=== PATIENT | male | born 1975 | race American Indian/Alaskan Native ===

== ENCOUNTER 2018-07-04 09:36 | Inpatient (IN) | payer SELFPAY ==
[2018-07-04 09:44] VITALS: BMI 23.7
[2018-07-04 10:59] LABS: BASO # 0.1 K/uL (0.0-0.2); BASO % 0.4 % (0.0-2.0); LYMPH # 0.7 K/uL (1.0-4.3); LYMPH % 4.6 % (20.0-40.0); MEAN CELL VOLUME 85.9 fl (80.0-94.0); MEAN CORPUSCULAR HGB CONC 32.6 g/dL (33.0-37.0); MEAN PLATELET VOLUME 7.8 fl (7.2-11.7); MONO # 0.7 K/uL (0.0-0.8); MONO % 4.8 % (0.0-10.0); NEUT # 13.3 K/uL (1.8-7.0); NEUT % 90.2 % (50.0-75.0); PLATELET COUNT 480 K/uL (130-400); RBC 4.65 Mil/uL (4.40-5.90); RED CELL DISTRIBUTION WIDTH 14.8 % (11.5-14.5); WHITE BLOOD COUNT 14.8 K/uL (4.8-10.8)
[2018-07-04 11:14] LABS: ALB/GLOB RATIO 1.1 (1.0-2.1); ALBUMIN 4.2 g/dL (3.5-5.0); ALT/SGPT 33 U/L (21-72); AST/SGOT 38 U/L (17-59); BLOOD UREA NITROGEN 18 mg/dl (9-20); CALCIUM 9.6 mg/dL (8.4-10.2); GFR NON-AFRICAN AMERICAN > 60
[2018-07-04 11:15] LABS: SPERM URINE RARE /hpf; URINE BILIRUBIN NEGATIVE (NEGATIVE); URINE BLOOD NEGATIVE (NEGATIVE); URINE CLARITY CLEAR (Clear); URINE COLOR YELLOW (YELLOW); URINE GLUCOSE (UA) NEG (NEGATIVE); URINE LEUKOCYTE ESTERASE NEG Leu/uL (Negative); URINE PROTEIN 30 mg/dL (NEGATIVE); URINE UROBILINOGEN 0.2-1.0 mg/dL (0.2-1.0)
[2018-07-04 11:24] LABS: BARBITURATES, UR NEGATIVE (NEGATIVE)
[2018-07-04 11:28] LABS: BENZODIAZEPINES, UR NEGATIVE (NEGATIVE); OPIATES, UR POSITIVE (NEGATIVE); PHENCYCLIDINE, UR NEGATIVE (NEGATIVE)
[2018-07-04 11:40] LABS: LYMPHOCYTE 6 % (20-50); MONOCYTE 5 % (0-10); NEUTROPHIL 89 % (42-75); TOTAL CELLS COUNTED 100
[2018-07-04 11:41] LABS: ANISOCYTOSIS SLIGHT; PLATELET CLUMPS PRESENT; PLATELET ESTIMATE NORMAL (NORMAL)
--- NOTE | 2018-07-04 12:57 | RAD ---
Date of service: 07/04/2018 HISTORY: SOB COMPARISON: No prior. FINDINGS: LUNGS: No active pulmonary disease. PLEURA: No significant pleural effusion identified, no pneumothorax apparent. CARDIOVASCULAR: No atherosclerotic calcification present Normal. OSSEOUS STRUCTURES: No significant abnormalities. VISUALIZED UPPER ABDOMEN: Normal. OTHER FINDINGS: None. IMPRESSION: No active disease.
--- NOTE | 2018-07-04 14:29 | ED PDOC ---
HPI: Psych/Substance Abuse Time Seen by Provider: 07/04/18 10:09 Chief Complaint (Nursing): Substance Abuse Chief Complaint (Provider): Substance Abuse History Per: Patient Onset/Duration Of Symptoms: Days Current Symptoms Are (Timing): Still Present Additional Complaint(s): 43 y/o male with a PMHx of depression and substance abuse presents to the ED complaining of recently binging on cocaine and sleeping pills stating "It's all over" with suicidal thoughts and the need to escape. Patient admits to occasional alcohol use and prior hospitalizations. Patient reports he is not taking medications as prescribed. Of note, patient will not elaborate on stressors or triggers for recent worsening symptoms. Patient denies physical complaints except for palpitations. Otherwise, patient additionally denies history of opioid abuse. Past Medical History Reviewed: Historical Data, Nursing Documentation, Vital Signs Vital Signs: Last Vital Signs Temp 99.1 F 07/04/18 09:45 Pulse 112 H 07/04/18 09:45 Resp 18 07/04/18 09:45 BP 144/106 H 07/04/18 09:45 Pulse Ox 99 07/04/18 09:45 - Medical History PMH: Depression Other PMH: substance abuse - Surgical History Surgical History: No Surg Hx - Family History Family History: States: Unknown Family Hx - Social History Alcohol: Occasional Drugs: Cocaine - Immunization History Hx Tetanus Toxoid Vaccination: No Hx Influenza Vaccination: No Hx Pneumococcal Vaccination: No - Home Medications Home Medications: Ambulatory Orders Medication Instructions Recorded No Known Home Med 07/04/18 - Allergies Allergies/Adverse Reactions: Allergies Allergy/AdvReac Type Severity Reaction Status Date / Time No Known Allergies Allergy Verified 07/04/18 10:35 Review of Systems ROS Statement: Except As Marked, All Systems Reviewed And Found Negative Cardiovascular: Positive for: Palpitations Psych: Positive for: Depression, Suicidal ideation Physical Exam - Reviewed Nursing Documentation Reviewed: Yes Vital Signs Reviewed: Yes - Physical Exam Appears: Positive for: No Acute Distress Head Exam: Positive for: ATRAUMATIC, NORMOCEPHALIC Skin: Positive for: Normal Color, Warm, Dry Eye Exam: Positive for: Normal appearance, EOMI, PERRL Neck: Positive for: Normal, Painless ROM Cardiovascular/Chest: Positive for: Tachycardia (with regular rhythm). Negative for: Murmur Respiratory: Positive for: Normal Breath Sounds. Negative for: Respiratory Distress Gastrointestinal/Abdominal: Positive for: Normal Exam, Soft. Negative for: Tenderness Extremity: Positive for: Normal ROM. Negative for: Deformity Neurological/Psych: Positive for: Awake, Alert, Mood/Affect (Depressed Mood, Fair Insight), Other (Poor eye contact) - Laboratory Results Result Diagrams: 07/04/18 10:50 07/04/18 10:50 Lab Results: Troponin I < 0.0120 ng/mL (0.00-0.120) 07/04/18 10:50 Total Bilirubin 0.2 mg/dl (0.2-1.3) 07/04/18 10:50 AST 38 U/L (17-59) 07/04/18 10:50 ALT 33 U/L (21-72) 07/04/18 10:50 Alkaline Phosphatase 61 U/L (38-126) 07/04/18 10:50 Total Protein 8.1 G/DL (6.3-8.2) 07/04/18 10:50 Albumin 4.2 g/dL (3.5-5.0) 07/04/18 10:50 Globulin 3.9 gm/dL (2.2-3.9) 07/04/18 10:50 Albumin/Globulin Ratio 1.1 (1.0-2.1) 07/04/18 10:50 Urine Color Yellow (YELLOW) 07/04/18 10:50 Urine Clarity Clear (Clear) 07/04/18 10:50 Urine pH 6.0 (5.0-8.0) 07/04/18 10:50 Ur Specific [place] 1.023 (1.003-1.030) 07/04/18 10:50 Urine Protein 30 mg/dL (NEGATIVE) 07/04/18 10:50 Urine Glucose (UA) Neg mg/dL (NEGATIVE) 07/04/18 10:50 Urine Ketones Negative mg/dL (NEGATIVE) 07/04/18 10:50 Urine Blood Negative (NEGATIVE) 07/04/18 10:50 Urine Nitrate Negative (NEGATIVE) 07/04/18 10:50 Urine Bilirubin Negative (NEGATIVE) 07/04/18 10:50 Urine Urobilinogen 0.2-1.0 mg/dL (0.2-1.0) 07/04/18 10:50 Ur Leukocyte Esterase Neg Melissa/uL (Negative) 07/04/18 10:50 Urine Microscopic WBC 1 /hpf (0-5) 07/04/18 10:50 Urine Sperm (Auto) Rare /hpf (NONE) H 07/04/18 10:50 - ECG ECG Rhythm: Positive for: Sinus Tachycardia. Negative for: ST/T Changes Rate: 110 O2 Sat by Pulse Oximetry: 99 (RA) Pulse Ox Interpretation: Normal Medical Decision Making Medical Decision Making: Time: 1039 A/P: -- Ativan 1 mg given for Anxiety and likely cocaine intoxication. -- EKG -- Alcohol Serum -- CMP -- Urine Drug Screen -- Troponin I -- CBC with Differentials -- CXR Portable -- Ativan 1 mg IVP -- 1:1 Observation -- Urinalysis Time: 1200 -- Labs reviewed and demonstrate a mildly elevated WBC. However, no evidence of active infection noted. -- CXR demonstrates no active disease as per official radiology report. -- Urinalysis is negative Time: 1417 -- Crisis evaluation performed and recommends admission as per Dr. Trivedi. Patient is medically stable for psychiatric admission. Scribe Attestation: Documented by Presley Alcantara, acting as a scribe Jimenez Worthington DO. Provider Scribe Attestation: All medical record entries made by the Scribe were at my direction and personally dictated by me. I have reviewed the chart and agree that the record a ccurately reflects my personal performance of the history, physical exam, medical decision making, and the department course for this patient. I have also personally directed, reviewed, and agree with the discharge instructions and disposition. Disposition - Clinical Impression Clinical Impression: Depression, Substance abuse - Patient ED Disposition Is Patient to be Admitted: Yes Counseled Patient/Family Regarding: Studies Performed - Disposition Disposition Time: 14:17 Condition: STABLE Forms: [facility] ([facility]) - Pt Status Changed To: Hospital Disposition Of: Inpatient - Admit Certification Admit to Inpatient:: After my assessment, the patient will require hospitaliz ation for at least two midnights. This is because of the severity of symptoms shown, intensity of services needed, and/or the medical risk in this patient being treated as an outpatient.
--- NOTE | 2018-07-04 17:37 | CARD ---
APPROVED REPORT Date of service: 07/04/2018 EKG Measurement Heart [id number] <Conclusion> Sinus tachycardia Otherwise normal ECG
[2018-07-04 22:30] VITALS: O2SAT 100
[2018-07-04] MEDS ORDERED: DiphenhydrAMINE 50 mg/ml Inj IM PRN (23:18)
[2018-07-04] MEDS ORDERED: Magnesium Hydroxide Susp 30 ml UD PO PRN (23:18)
[2018-07-04] MEDS ORDERED: Alum-Mag Hydrox-Simethicone Susp (30 mL) PO PRN (23:18)
--- NOTE | 2018-07-04 23:49 | PCM.BM ---
<DongRuth Ilene - Last Filed: 07/04/18 23:47> Treatment Plan Problems - Problems identified on initial assessmt Hoplessness/Helplessness Date Initiated: 07/04/18 Time Initiated: 23:47 Assessment reference: NA Status: Active Altered Sleep Patterns Date Initiated: 07/04/18 Time Initiated: 23:48 Assessment reference: NA Status: Active Treatment assets and liabiliti Patient Assests: cooperative, self-reliant, ADL independent, physically healthy, negotiates basic needs Patient Liabilities: financial problems, poor support system, relationship conflicts, substance abuse - Milieu Protocol Maintain good personal hygiene: daily Encourage regular showers, every shift Remind patient to perform daily oral care Conduct patient checks and document Observation sheet: Q15 minutes Maintain personal safety: every shift Educate patient to report safety concerns to staff, every shift Monitor environment for contraband/sharps Medication safety: Monitor for expected outcome, potential side effects: every shift, Assess barriers to learning: every shift, Assess readiness for medication education: every shift <Otto Nelson - Last Filed: 07/05/18 13:55> Family Contact Family involvement: Famliy/SO not involved Family contact: Patient declines to allow family contact at present Family contact name: Pt refused. - Goals for Treatment Patient goals for treatment: Pt unable to articulate goals for treatment at this time. Pt refused rehab as he has to work and reported that he needs to leave [facility] as there are too many triggers for use. However, pt denied family or friends that he can stay with, and reported that he cannot live in a homeless custodial. Discharge/Continuing Care - Education Needs Education Needs: Patient Medication, Patient Diagnosis/Disease Process, Patient Coping Skills, Patient Community resources, Patient Aftercare Safety Plan - Discharge Discharge Criteria: Tolerates medication w/o severe side effects, Free of Suicidal thoughts, Free of paranoid thoughts, Free of agitation, Normal sleep pattern, Ability to care for self, No longer exhibiting s/s of withdrawal, Reduction of target symptoms Discharge to:: [facility] - Treatment Team Participation Patient/Family/SO Statement: 07/05/18 13:56 Pt was seen in treatment team on 07/05/18. Pt reported that he is feeling extremely depressed, but was able to contract for safety on the unit. Pt denied feeling safe if he left the unit. Pt reported he was admitted for "drinking/drugs." Pt reported he was staying with his estranged , but had to leave after a verbal altercation. Pt reported that he has lost his , children and family and has nothing left to live for. Pt reported he has a sister in [place] and uncles in [place] that he has lost contact with. Pt reported he cannot live in a custodial or [facility]. Pt refused rehab referrals or referrals to [facility]. Pt denied HI and AVT hallucinations. Pt appeared depressed and his speech was soft and slow. Pt appeared disheveled and dressed in gowns. Pt was grandiose and appeared to have unrealistic views regarding treatment. Discussed with Family/SO: No Was Patient/Family/SO present at Treatment Team Meeting: Yes <Leo Trivedi - Last Filed: 07/08/18 16:04> - Diagnosis (1) Depression Status: Acute Interventions: 07/08/18 16:04 psychotherapy, pharmacotherapy
--- NOTE | 2018-07-05 14:56 | PCM.PSYCH ---
Initial Psychiatric Evaluation - Initial Psychiatric Evaluation Type of Admission: Voluntary Legal Status: Capacity Chief Complaint (in patient's own words): I lost everything because of drugs History of Present Illness and Precipitating Events: pt is 43 ys old male with previous diagnosis of depression and polysubstance use presented to ER after suicidal attempt by overdose on cocaine and benadryl pt has not been compliant with medications or follow up, relapsed on cocaine , and opiates, resulting in loosing his and children, loosing his work, became homeless, pt became increasingly depressed feeling hopeless and helpless, on day of evaluation started having suicidal ideation, attempted suicide by overdose on cocaine and benadryl on the unit continues to present with low energy, feeling hopeless ,helpless and reporting passive suicidal ideation without active plan on the unit denied command hallucinations, denied suicidal or homicidal ideation Current Medications: Active Medications Generic Name Dose Route Start Last Admin Trade Name Freq PRN Reason Stop Dose Admin Acetaminophen 650 mg 07/04/18 23:18 Tylenol 325mg Tab PO Q4 PRN Pain, moderate (4-7) Al Hydrox/Mg Hydrox/Simethicone 30 ml 07/04/18 23:18 Maalox Plus 30 Ml PO Q4 PRN Dyspepsia Bupropion HCl 75 mg 07/06/18 09:00 Wellbutrin PO DAILY LYNNETTE Clonidine HCl 0.1 mg 07/05/18 14:40 Catapres PO TID PRN Opiate reversal Diphenhydramine HCl 50 mg 07/04/18 23:18 Benadryl IM Q6 PRN Extrapyramidal S/S Unable PO Diphenhydramine HCl 50 mg 07/04/18 23:18 Benadryl PO Q6 PRN Extrapyramidal Symptoms Diphenhydramine HCl 50 mg 07/04/18 23:25 Benadryl PO HS PRN Sleep Haloperidol 5 mg 07/04/18 23:18 Haldol PO Q4 PRN Agitation Haloperidol Lactate 5 mg 07/04/18 23:18 Haldol IM Q4 PRN Agitation, Unable to Take PO Lorazepam 2 mg 07/04/18 23:18 Ativan IM Q4 PRN Anxiety/Agitation,Unable PO Lorazepam 1 mg 07/04/18 23:18 Ativan PO Q8 PRN Anxiety/Agitation Magnesium Hydroxide 30 ml 07/04/18 23:18 Milk Of Magnesia PO HS PRN Constipation Trazodone HCl 100 mg 07/05/18 22:00 Desyrel PO HS LYNNETTE Past Psychiatric History - Past Psychiatric History Explanation of prior treatment: multiple hospitalizations hx of non compliance History of ETOH/Drug Use: cocaine , opiate abuse History of Family Illness: father hx of substance use Pertinent Medical Hx (Current Medical&Sleep Prob, Allergies): Allergies Allergy/AdvReac Type Severity Reaction Status Date / Time No Known Allergies Allergy Verified 07/04/18 10:35 No Known Home Med 07/04/18 Mental Status Examination - Personal Presentation Personal Presentation: Looks older than stated age - Affect Affect: Constricted, Depressed - Motor Activity Motor Activity: Psychomotor Retardation - Reliability in Providing Information Reliability in Providing Information: Fair - Speech Speech: Relevant - Mood Mood: Depressed, Anxious - Formal Thought Process Formal Thought Process: Circumstantial - Obsessions/Compulsions Obsessions: No Compulsions: No - Cognitive Functions Orientation: Person, Place, Situation Sensorium: Alert Abstract Thinking: [place] Judgement: Imparied, as evidence by: Poor judgement, Imparied, as evidence by: Lack of insight into illness - Risk Risk: Suicidal, Withdrawal, Diminished functioning - Strength & Assets Inventory Strength & Assets Inventory: Life experience - Limitations Additional comments: homeless DSM 5 DX - DSM 5 DSM 5 Diagnosis: major depression cocaine abuse opiate abuse - Recommended/Plan of Treatment Treatment Recommendations and Plan of Treatment: start wellbutrin 75mg daily start clonidine 0.1mg tid prn / monitor for symptoms and signs of opiate withdrawal trazodone 100mg qhs motivational group and supportive therapy internal medicine consult
--- NOTE | 2018-07-05 15:46 | CP.PCM.CON ---
History of Present Illness - History of Present Illness History of Present Illness: 43 yo male with history of depression and polysubstance abuse admitted to psyche unit because of suicidal attempt. Review of Systems - Review of Systems All systems: reviewed and no additional remarkable complaints except (aside from those mentioned above, 12 point system review were negative by me) Past Patient History - Tetanus Immunizations Tetanus Immunization: Unknown - Past Social History Smoking Status: Never Smoked Alcohol: > 2 Drinks/Day Drugs: Cocaine - CARDIAC Hx Cardiac Disorders: No - PULMONARY Hx Respiratory Disorders: No - NEUROLOGICAL Hx Neurological Disorder: No - HEENT Hx HEENT Problems: No - RENAL Hx Chronic Kidney Disease: No - ENDOCRINE/METABOLIC Hx Endocrine Disorders: No - HEMATOLOGICAL/ONCOLOGICAL Hx Blood Disorders: No - INTEGUMENTARY Hx Dermatological Problems: No - MUSCULOSKELETAL/RHEUMATOLOGICAL Hx Musculoskeletal Disorders: No - GASTROINTESTINAL Hx Gastrointestinal Disorders: No - GENITOURINARY/GYNECOLOGICAL Hx Genitourinary Disorders: No - PSYCHIATRIC Hx Substance Use: Yes - SURGICAL HISTORY Hx Surgeries: No - ANESTHESIA Hx Anesthesia: No Meds Allergies/Adverse Reactions: Allergies Allergy/AdvReac Type Severity Reaction Status Date / Time No Known Allergies Allergy Verified 07/04/18 10:35 - Medications Medications: Current Medications Acetaminophen (Tylenol 325mg Tab) 650 mg PO Q4 PRN PRN Reason: Pain, moderate (4-7) Al Hydrox/Mg Hydrox/Simethicone (Maalox Plus 30 Ml) 30 ml PO Q4 PRN PRN Reason: Dyspepsia Bupropion HCl (Wellbutrin) 75 mg PO DAILY LYNNETTE Clonidine HCl (Catapres) 0.1 mg PO TID PRN PRN Reason: Opiate reversal Diphenhydramine HCl (Benadryl) 50 mg IM Q6 PRN PRN Reason: Extrapyramidal S/S Unable PO Diphenhydramine HCl (Benadryl) 50 mg PO Q6 PRN PRN Reason: Extrapyramidal Symptoms Diphenhydramine HCl (Benadryl) 50 mg PO HS PRN PRN Reason: Sleep Haloperidol (Haldol) 5 mg PO Q4 PRN PRN Reason: Agitation Haloperidol Lactate (Haldol) 5 mg IM Q4 PRN PRN Reason: Agitation, Unable to Take PO Lorazepam (Ativan) 2 mg IM Q4 PRN PRN Reason: Anxiety/Agitation,Unable PO Lorazepam (Ativan) 1 mg PO Q8 PRN PRN Reason: Anxiety/Agitation Magnesium Hydroxide (Milk Of Magnesia) 30 ml PO HS PRN PRN Reason: Constipation Trazodone HCl (Desyrel) 100 mg PO HS LYNNETTE Physical Exam - Constitutional Appears: No Acute Distress - Head Exam Head Exam: ATRAUMATIC - Eye Exam Eye Exam: absent: Scleral icterus - ENT Exam ENT Exam: absent: Mucous Membranes Moist - Neck Exam Neck exam: Negative for: Meningismus - Respiratory Exam Respiratory Exam: absent: Rales, Rhonchi, Wheezes, Respiratory Distress - Cardiovascular Exam Cardiovascular Exam: REGULAR RHYTHM, +S1, +S2 - GI/Abdominal Exam GI & Abdominal Exam: Soft. absent: Tenderness - Rectal Exam Rectal Exam: Deferred - Neurological Exam Neurological exam: Alert, Oriented x3 - Psychiatric Exam Psychiatric exam: Normal Affect - Skin Skin Exam: Dry, Intact Results - Vital Signs Recent Vital Signs: Last Vital Signs Temp 97.7 F 07/04/18 23:39 Pulse 86 07/04/18 23:40 Resp 18 07/04/18 23:40 BP 128/80 07/04/18 23:39 Pulse Ox 100 07/04/18 22:29 - Labs Result Diagrams: 07/04/18 10:50 07/04/18 10:50 Labs: Laboratory Results - last 24 hr 07/05/18 07/05/18 07/05/18 06:30 06:30 06:30 Hemoglobin A1c 5.9 Triglycerides 43 Cholesterol 166 LDL Cholesterol Direct 63 HDL Cholesterol 84 H Thyroxine (T4) 5.44 L TSH 3rd Generation 1.02 RPR Nonreactive Assessment & Plan (1) Suicide attempt Status: Acute Comment: psyche is managing
--- NOTE | 2018-07-06 18:32 | PCM.PYCHPN ---
Psychiatric Progress Note - Psychiatric Progress Note Patient seen today, length of contact: chart reviewed case discussed with team Patient Chief Complaint: was outside had been feeling better problems with domicle feels as though when discharged returns to same environment relapse, reports feeling better somewhat here, sleep somewhat improved-feels as though can sleep more difficulty falling asleep and staying asleep defers relationship to nocturia. staff report pt has been adherent with treatment/ Problems Identified/Issues Discussed: alteration in coping alteration in mood Medical Problems: per chart Diagnostic Results: per psychiatry per medicine per nursing per social work per recreational therapy DSM 5 Symptoms Update: somewhat improvement in mood no complaints of withdrawal Medication Change: Yes (trazodone 100mg po hs for insomnia) Medical Record Reviewed: Yes Consults ordered or reviewed: pt seen by hospitalist Mental Status Examination - Cognitive Function Orientation: Person, Place, Situation Attention: WNL Concentration: WNL Association: WNL Fund of Knowledge: [facility] Decription of patient's judgement and insights: impaired - Mood Mood: Depressed, Anxious Additional comments: somewhat lessened - Affect Affect: Constricted, Depressed - Speech Speech: Soft - Formal Thought Process Formal Thought Process: Circumstantial - Homicidal Ideation Homicidal Ideation: No Goal/Treatment Plan - Goal/Treatment Plan Progress Toward Problem(s) and Goals/Treatment Plan: inpt milieu adjust meds per clinical status increase trazodone to 100mg po hs for insomnia-get up slowly, possible constipation, possible priaprism discharge planning in progress Estimated Date of D/C: 07/10/18 - Smoking Cessation Smoking Cessation Initiated: No Reason for not providing: deferred
--- NOTE | 2018-07-07 13:15 | PCM.PYCHPN ---
Psychiatric Progress Note - Psychiatric Progress Note Patient seen today, length of contact: chart reviewed case discussed with team Patient Chief Complaint: sleep improved, depression is somewhat better feels as though could improved is better as to compared to initial presentation. denies excitation impulsve behaviors or notable tati vacillations in mood. denies sedation constipation or notable priaprism. staff report pt has been adherent with rx and seen about in milieu. Problems Identified/Issues Discussed: alteration in coping alteration in mood Medical Problems: per chart Diagnostic Results: per psychiatry per medicine per nursing per social work per recreational therapy DSM 5 Symptoms Update: improvement in sleep, some improvement depression Medication Change: Yes ([id number]) Medical Record Reviewed: Yes Mental Status Examination - Cognitive Function Orientation: Person, Place, Situation Attention: WNL Concentration: WNL Association: [facility] Fund of Knowledge: [facility] Decription of patient's judgement and insights: impaired - Mood Mood: Depressed, Anxious - Affect Affect: Constricted, Depressed - Speech Speech: Soft - Formal Thought Process Formal Thought Process: Circumstantial - Homicidal Ideation Homicidal Ideation: No Goal/Treatment Plan - Goal/Treatment Plan Progress Toward Problem(s) and Goals/Treatment Plan: inpt milieu adjust meds per clinical status d/c buproprion [id number] buproprion [id number] po x1 dose today, starting tomorrow buproprion [id number] po bid vital signs per protocol and per clinical status _assess possible serotonin syndrome, assess possible changes in sleep make trazodone 100mg po hs prn vs standing pt may ask or nursing staff can offer discharge planning in progress Estimated Date of D/C: 07/10/18 - Smoking Cessation Smoking Cessation Initiated: No Reason for not providing: defers
--- NOTE | 2018-07-08 16:11 | PCM.PYCHPN ---
Psychiatric Progress Note - Psychiatric Progress Note Patient seen today, length of contact: chart reviewed case discussed with team Patient Chief Complaint: I need to stay away from the triggers Problems Identified/Issues Discussed: pt evaluated reported feeling less depressed, no reported side effects of wellbutrin, observed attending groups, interacting with other peers, no changes in sleep or appetite denied suicidal or homicidal ideation denied perceptual d isturbances, motivational therapy provided in reference to substance use Medical Problems: multiple hospitalizations hx of non compliance DSM 5 Symptoms Update: cocaine induced mood disorder cocaine abuse depression Medication Change: No Medical Record Reviewed: Yes Mental Status Examination - Cognitive Function Orientation: Person, Place, Situation Attention: WNL Concentration: WNL Association: WNL Fund of Knowledge: WNL - Mood Mood: Depressed, Anxious - Affect Affect: Constricted, Depressed - Speech Speech: Soft - Formal Thought Process Formal Thought Process: Circumstantial - Suicidal Ideation Suicidal Ideation: No - Homicidal Ideation Homicidal Ideation: No Goal/Treatment Plan - Goal/Treatment Plan Need for Continued Stay: Severe depression anxiety, Discharge may exacerbated symptoms Progress Toward Problem(s) and Goals/Treatment Plan: wellbutrin 100 mg bid trazodone 100mg qhs motivational group and supportive therapy Estimated Date of D/C: 07/10/18
[2018-07-09 09:31] VITALS: BP 136/82; PULSE 58; RESP 18; TEMP 97.9
--- NOTE | 2018-07-09 09:48 | PCM.PYCHDC ---
Mental Status Examination - Mental Status Examination Orientation: Person, Place, Situation Memory: Intact Mood: Neutral Affect: Broad Speech: Appropriate Attention: WNL Concentration: WNL Association: WNL Fund of Knowledge: WNL Formal Thought Process: Circumstantial Description of patient's judgement and insight: partial insight poor judgment Psychotic Thoughts and Behaviors: pt denied perceptual disturbances, non elicited Suicidal Ideation: No Current Homicidal Ideation?: No Discharge Summary - Discharge Note Reason for Hospitalization: pt is 43 ys old male with previous diagnosis of depression and polysubstance use presented to ER after suicidal attempt by overdose on cocaine and benadryl pt has not been compliant with medications or follow up, relapsed on cocaine , and opiates, resulting in loosing his and children, loosing his work, became homeless, pt became increasingly depressed feeling hopeless and helpless, on day of evaluation started having suicidal ideation, attempted suicide by overdose on cocaine and benadryl on the unit continues to present with low energy, feeling hopeless ,helpless and reporting passive suicidal ideation without active plan on the unit denied command hallucinations, denied suicidal or homicidal ideation Consultations:: List each consultation separately and include: 1. Reason for request. 2. Findings. 3. Follow-up Summary of Hospital Course include:: 1. Description of specific treatment plan utilized for patients during their course of treatmen. 2. Summarize the time- course for resolution of acute symptoms and/or regressed behaviors. 3. Describe issues identified and worked on during hospitalization. 4. Describe medication utilized. 5. Describe medical problems identified and treated. 6. Reassessment of suicide risk Summary of Hospital Course: pt on admission was placed on clonidine protocol, monitored for symptoms and signs of opiate withdrawal pt was also placed on wellbutrin for depression motivational group and supportive therapy provided on discharge mental status was stable pt denied any current suicidal or homicidal ideation, denied perceptual disturbances follow up arranged by [employer] school social [employer] teacher at [facility] outpatient program - Diagnosis (1) Depression Current Visit: Yes Status: Acute - Final Diagnosis (DSM 5) Condition upon Discharge: STABLE Disposition: HOME/ ROUTINE Follow-up Treatment Plan: wellbutrin 100 mg bid trazodone 100mg qhs motivational group and supportive therapy Prescriptions/Medication Reconciliation: buPROPion SR [Wellbutrin] 100 mg PO BID 30 Days #60 tab traZODone [Desyrel] 100 mg PO HS PRN 30 Days #30 tab PRN Reason: Insomnia - Antipsychotic Medications Pt discharged on 2 or more routine antipsychotic medications: No
== END 2018-07-09 13:00 | disposition home or self-care (01) | DRG 895 ==
LOC: H.ER 09:36 → H.ERHOLD 21:17 → H.PSYCH 23:10
PROVIDERS: ADMIT Psychiatry & Neurology Psychiatry; ATTEND Psychiatry & Neurology Psychiatry
PROC: HZ52ZZZ Individual Psychotherapy for Substance Abuse Treatment, Cognitive-Behavioral (ICD-10-PCS; principal; 2018-07-04)
PROC: GZHZZZZ Group Psychotherapy (ICD-10-PCS; 2018-07-04)
PROC: GZ58ZZZ Individual Psychotherapy, Cognitive-Behavioral (ICD-10-PCS; 2018-07-04)
DX: F14.14 Cocaine abuse with cocaine-induced mood disorder (principal); F32.9 Major depressive disorder, single episode, unspecified; F14.129 Cocaine abuse with intoxication, unspecified; F11.10 Opioid abuse, uncomplicated; F10.129 Alcohol abuse with intoxication, unspecified; Y90.0 Blood alcohol level of less than 20 mg/100 ml; F41.9 Anxiety disorder, unspecified; Z91.5 Personal history of self-harm; Z91.14 Patient's other noncompliance with medication regimen; Z91.19 Patient's noncompliance with other medical treatment and regimen; G47.00 Insomnia, unspecified; Z79.899 Other long term (current) drug therapy